=== PATIENT | female | born 1960 | race Caucasian/White ===

== ENCOUNTER 2016-11-19 18:59 | Inpatient (IN) | payer BC, OTHER ==
[~2016-11-19] VITALS: Ht 165.1 cm; Wt 56.2 kg
[2016-11-19 19:05] VITALS: BP_SYST 115
[2016-11-19] MEDS ORDERED: NACL 0.9% 1,000 ML IV ONE ×2 (19:30→20:45)
[2016-11-19] MEDS ORDERED: NALOXONE HCL 2 MG/2 ML SYR IVP ONE (19:30)
[2016-11-19 19:47] LABS: MEAN CORPUSCULAR HEMOGLOBIN 27 pg (27-31); MEAN CORPUSCULAR HGB CONC 32 % (32-36); MEAN CORPUSCULAR VOLUME 85 fL (79.0-98.0)
[2016-11-19 20:12] LABS: BASOPHILS # (AUTO) 0.1 K/uL (0.0-0.2); BASOPHILS % (AUTO) 0.6 % (0.0-2.0); LYMPHOCYTES # (AUTO) 0.4 K/uL (1.0-5.5); LYMPHOCYTES % (AUTO) 2.6 % (20.5-51.5); MONOCYTES # (AUTO) 0.1 K/uL (0.0-1.0); NEUTROPHILS # (AUTO) 13.7 K/uL (1.8-7.7); NEUTROPHILS % (AUTO) 95.8 % (40.0-70.0); PLATELET COUNT (AUTO) 581 K/uL (130-430); RED BLOOD CELL COUNT(AUTO) 3.66 MIL/uL (4.2-6.2); RED CELL DISTRIBUTION WIDTH 14.9 % (9.0-15.0); WHITE BLOOD COUNT (AUTO) 14.3 K/uL (4.8-10.8)
[2016-11-19 20:35] LABS: CALCIUM 9.1 mg/dL (8.4-11.0); CREATININE 0.67 mg/dL (0.55-1.30); GLUCOSE 134 mg/dL (70-99); SODIUM SERUM 124 mmol/L (136-145); UREA NITROGEN, BLOOD 21 mg/dL (8-21)
[2016-11-19 20:36] LABS: CHLORIDE 84 mmol/L (98-107); GFR AFRICAN AMERICAN 117 mL/min (>90)
[2016-11-19 20:39] LABS: ANION GAP < 3 (5-15)
[2016-11-19 20:44] LABS: ALANINE AMINOTRANSFERASE 13 U/L (12-78); ALBUMIN 2.4 g/dL (3.4-4.8); ALCOHOL, BLOOD < 3 mg/dL (<10); ASPARTATE AMINOTRANSFERASE 23 U/L (10-37); LIPASE 72 U/L (73-393); SALICYLATE 2 mg/dL (3-30); TOTAL BILIRUBIN 0.2 mg/dL (0.0-1.0); TOTAL PROTEIN, SERUM 6.7 g/dL (6.4-8.3)
[2016-11-19] MEDS ORDERED: DEXTROSE 50% JECT 50 ML DISP.SYRIN IVP ONE (20:45)
[2016-11-19] MEDS ORDERED: INSULIN REGULAR, HUMAN 10 UNITS/0.1 ML INJ IVP ONE (20:45)
[2016-11-19] MEDS ORDERED: SODIUM POLYSTYRENE SULFONATE 15 GM/60 ML UDBTL PO ONE ×2 (20:45→22:15)
[2016-11-19 21:21] LABS: ACETAMINOPHEN 2 ug/mL (1-30)
[2016-11-19 22:03] LABS: BILIRUBIN,URINE NEGATIVE (NEGATIVE); BLOOD, URINE NEGATIVE (NEGATIVE); CLARITY/URINE HAZY (CLEAR); COLOR,URINE YELLOW (YELLOW); GLUCOSE,URINE 1+ (NEGATIVE); KETONES,URINE NEGATIVE (NEGATIVE); LEUKOCYTE ESTERASE ,URINE NEGATIVE (NEGATIVE); NITRITE, URINE NEGATIVE (NEGATIVE); PROTEIN URINE TRACE (NEGATIVE); UROBILINOGEN,URINE 0.2 (0.2-1.0)
[2016-11-19 22:21] LABS: BACTERIA,URINE FEW /HPF (None Seen); HYALINE CASTS, URINE 0-10 /LPF (None Seen); MUCUS,URINE 2+ /LPF (None Seen); RBC,URINE 0-3 /HPF (0-3)
[2016-11-19 22:36] VITALS: BP_SYST 108
[2016-11-19 22:37] LABS: BARBITURATE, URINE NEGATIVE (NEG <=200)
[2016-11-19 22:38] LABS: BENZODIAZEPINE, URINE POSITIVE (NEG <=150); CANNABINOID, URINE NEGATIVE (NEG <=50); COCAINE, URINE NEGATIVE (NEG <=150); METHAMPHETAMINES SCREEN,URINE NEGATIVE (NEG <=500); OPIATE, URINE NEGATIVE (NEG <=100); PHENCYCLIDINE SCREEN,URINE NEGATIVE (NEG <=25); UR TRICYCLIC ANTIDEPRESSANTS NEGATIVE (NEG <=300); URINE AMPHETAMINE NEGATIVE (NEG <=500); URINE METHADONE NEGATIVE (NEG <=200); URINE OXYCODONE SCREEN NEGATIVE (NEG <=100); URINE PROPOXYPHENE SCREEN NEGATIVE (NEG <=300)
[2016-11-20] VITALS (23 sets, daily range): BP systolic 85–117
[2016-11-20] MEDS ORDERED: SPIRIVA INH (04:29)
[2016-11-20] MEDS ORDERED: AMLO5TAB92 PO (04:29)
[2016-11-20] MEDS: NACL 0.9% 1,000 ML IV SCH (07:01)
[2016-11-20 07:14] LABS: BASOPHILS # (AUTO) 0.1 K/uL (0.0-0.2); BASOPHILS % (AUTO) 0.6 % (0.0-2.0); HEMATOCRIT 29.8 % (36-48); HEMOGLOBIN 9.3 g/dL (12.0-16.0); LYMPHOCYTES # (AUTO) 0.6 K/uL (1.0-5.5); LYMPHOCYTES % (AUTO) 3.7 % (20.5-51.5); MEAN CORPUSCULAR HEMOGLOBIN 27 pg (27-31); MEAN CORPUSCULAR HGB CONC 31 % (32-36); MEAN CORPUSCULAR VOLUME 86 fL (79.0-98.0); MONOCYTES # (AUTO) 1.2 K/uL (0.0-1.0); MONOCYTES % (AUTO) 7.6 % (1.7-9.3); NEUTROPHILS # (AUTO) 14.3 K/uL (1.8-7.7); NEUTROPHILS % (AUTO) 88.1 % (40.0-70.0); PLATELET COUNT (AUTO) 553 K/uL (130-430); RED BLOOD CELL COUNT(AUTO) 3.47 MIL/uL (4.2-6.2); RED CELL DISTRIBUTION WIDTH 14.6 % (9.0-15.0); WHITE BLOOD COUNT (AUTO) 16.2 K/uL (4.8-10.8)
[2016-11-20 07:20] LABS: ALANINE AMINOTRANSFERASE 11 U/L (12-78); ASPARTATE AMINOTRANSFERASE 20 U/L (10-37); CALCIUM 8.4 mg/dL (8.4-11.0); TOTAL BILIRUBIN 0.1 mg/dL (0.0-1.0); TOTAL PROTEIN, SERUM 5.7 g/dL (6.4-8.3); UREA NITROGEN, BLOOD 17 mg/dL (8-21)
[2016-11-20 07:39] LABS: POTASSIUM 4.7 mmol/L (3.5-5.1); SODIUM SERUM 136 mmol/L (136-145)
[2016-11-20 07:40] LABS: CHLORIDE 93 mmol/L (98-107)
[2016-11-20 07:41] LABS: CREATININE 0.54 mg/dL (0.55-1.30); GFR AFRICAN AMERICAN 150 mL/min (>90); GLUCOSE 106 mg/dL (70-99)
[2016-11-20 07:42] LABS: ANION GAP < 3 (5-15)
[2016-11-20 08:19] LABS: BLOOD GAS PH 7.261 (7.350-7.450)
[2016-11-20 08:20] LABS: BLOOD GAS BASE EXCESS 8.7 mmol/L (-3.0-3.0)
[2016-11-20] MEDS ORDERED: ALBUTEROL SULFATE 0.083% 2.5 MG/3 ML VIAL.NEB INH PRN (09:30)
[2016-11-20] MEDS ORDERED: IPRATROPIUM BROM 0.5 MG/2.5 ML VIAL.NEB (ATROVENT) INH PRN (09:30)
[2016-11-20] MEDS: ALBUTEROL SULFATE 0.083% 2.5 MG/3 ML VIAL.NEB INH SCH ×4 (10:59→23:00)
[2016-11-20] MEDS: IPRATROPIUM BROM 0.5 MG/2.5 ML VIAL.NEB (ATROVENT) INH SCH ×4 (11:00→23:00)
[2016-11-20] MEDS: LEVOFLOXACIN 500 MG/D5W 100 ML IV SCH (11:13)
[2016-11-20 11:14] LABS: ABG TOTAL HEMOGLOBIN 10.5 G/dL (12.0-18.0); BLOOD GAS COHb% 0.2 % (0.5-1.5); BLOOD GAS HHB 25.1 % (0.0-6.0); BLOOD O2Hb% 74.6 % (94.0-97.0)
[2016-11-20] MEDS ORDERED: FLUT1DIS3 INH (11:48)
[2016-11-20] MEDS ORDERED: NS 500 ML IV ONE (14:15)
[2016-11-20] MEDS: VANCOMYCIN HCL 1 GM/NS PREMIX 250 ML IV SCH (16:41)
[2016-11-20] MEDS ORDERED: ACETAMINOPHEN 325 MG TABLET PO PRN (19:45)
[2016-11-21] VITALS (17 sets, daily range): BP systolic 96–154
[2016-11-21] MEDS: ALBUTEROL SULFATE 0.083% 2.5 MG/3 ML VIAL.NEB INH SCH ×5 (03:00→20:57)
[2016-11-21] MEDS: IPRATROPIUM BROM 0.5 MG/2.5 ML VIAL.NEB (ATROVENT) INH SCH ×4 (03:00→20:58)
[2016-11-21] MEDS: VANCOMYCIN HCL 1 GM/NS PREMIX 250 ML IV SCH ×2 (03:49→17:02)
[2016-11-21] MEDS: NACL 0.9% 1,000 ML IV SCH (03:49)
[2016-11-21 06:44] LABS: BASOPHILS # (AUTO) 0.1 K/uL (0.0-0.2); BASOPHILS % (AUTO) 0.5 % (0.0-2.0); HEMATOCRIT 27.9 % (36-48); HEMOGLOBIN 8.8 g/dL (12.0-16.0); LYMPHOCYTES # (AUTO) 0.8 K/uL (1.0-5.5); LYMPHOCYTES % (AUTO) 5.2 % (20.5-51.5); MEAN CORPUSCULAR HEMOGLOBIN 27 pg (27-31); MEAN CORPUSCULAR HGB CONC 31 % (32-36); MEAN CORPUSCULAR VOLUME 86 fL (79.0-98.0); MONOCYTES # (AUTO) 0.8 K/uL (0.0-1.0); MONOCYTES % (AUTO) 5.6 % (1.7-9.3); NEUTROPHILS # (AUTO) 12.8 K/uL (1.8-7.7); NEUTROPHILS % (AUTO) 88.7 % (40.0-70.0); PLATELET COUNT (AUTO) 493 K/uL (130-430); RED BLOOD CELL COUNT(AUTO) 3.26 MIL/uL (4.2-6.2); RED CELL DISTRIBUTION WIDTH 15.4 % (9.0-15.0); WHITE BLOOD COUNT (AUTO) 14.5 K/uL (4.8-10.8)
[2016-11-21 07:04] LABS: ALANINE AMINOTRANSFERASE 10 U/L (12-78); ALBUMIN 1.8 g/dL (3.4-4.8); ASPARTATE AMINOTRANSFERASE 24 U/L (10-37); CALCIUM 7.9 mg/dL (8.4-11.0); CHLORIDE 98 mmol/L (98-107); CREATININE 0.42 mg/dL (0.55-1.30); GLUCOSE 91 mg/dL (70-99); POTASSIUM 3.1 mmol/L (3.5-5.1); SODIUM SERUM 137 mmol/L (136-145); TOTAL BILIRUBIN 0.1 mg/dL (0.0-1.0); UREA NITROGEN, BLOOD 14 mg/dL (8-21)
[2016-11-21 07:13] LABS: GFR AFRICAN AMERICAN 201 mL/min (>90)
[2016-11-21 07:15] LABS: ANION GAP < 3 (5-15)
[2016-11-21 08:01] LABS: ABG TOTAL HEMOGLOBIN 9.9 G/dL (12.0-18.0); BLOOD GAS BASE EXCESS 7.9 mmol/L (-3.0-3.0); BLOOD GAS COHb% 0.3 % (0.5-1.5); BLOOD GAS HHB 8.6 % (0.0-6.0); BLOOD GAS PH 7.348 (7.350-7.450); BLOOD O2Hb% 90.8 % (94.0-97.0)
[2016-11-21] MEDS: LEVOFLOXACIN 500 MG/D5W 100 ML IV SCH (09:20)
[2016-11-21] MEDS ORDERED: POTASSIUM CHLORIDE 20 MEQ TAB.PRT.SR PO ONE (09:45)
[2016-11-21] MEDS ORDERED: HEPARIN SODIUM,PORCINE 5000 UNITS/ML VIAL IV ONE (19:30)
[2016-11-22 00:18] VITALS: BP_SYST 104
[2016-11-22] MEDS: VANCOMYCIN HCL 1 GM/NS PREMIX 250 ML IV SCH ×2 (03:29→16:18)
[2016-11-22 04:00] VITALS: BP_SYST 105
[2016-11-22 07:04] LABS: BASOPHILS % (AUTO) 0.1 % (0.0-2.0); HEMATOCRIT 27.2 % (36-48); HEMOGLOBIN 8.7 g/dL (12.0-16.0); LYMPHOCYTES # (AUTO) 0.8 K/uL (1.0-5.5); LYMPHOCYTES % (AUTO) 7.5 % (20.5-51.5); MEAN CORPUSCULAR HEMOGLOBIN 27 pg (27-31); MEAN CORPUSCULAR HGB CONC 32 % (32-36); MEAN CORPUSCULAR VOLUME 85 fL (79.0-98.0); MONOCYTES # (AUTO) 0.5 K/uL (0.0-1.0); MONOCYTES % (AUTO) 4.7 % (1.7-9.3); NEUTROPHILS # (AUTO) 9.8 K/uL (1.8-7.7); NEUTROPHILS % (AUTO) 87.7 % (40.0-70.0); PLATELET COUNT (AUTO) 473 K/uL (130-430); RED BLOOD CELL COUNT(AUTO) 3.21 MIL/uL (4.2-6.2); RED CELL DISTRIBUTION WIDTH 15.5 % (9.0-15.0); WHITE BLOOD COUNT (AUTO) 11.1 K/uL (4.8-10.8)
[2016-11-22 07:24] LABS: ALANINE AMINOTRANSFERASE 10 U/L (12-78); ALBUMIN 1.6 g/dL (3.4-4.8); ASPARTATE AMINOTRANSFERASE 27 U/L (10-37); CHLORIDE 100 mmol/L (98-107); CREATININE 0.41 mg/dL (0.55-1.30); GLUCOSE 87 mg/dL (70-99); POTASSIUM 3.5 mmol/L (3.5-5.1); SODIUM SERUM 140 mmol/L (136-145); TOTAL BILIRUBIN 0.2 mg/dL (0.0-1.0); TOTAL PROTEIN, SERUM 4.9 g/dL (6.4-8.3); UREA NITROGEN, BLOOD 10 mg/dL (8-21)
[2016-11-22 07:30] LABS: GFR AFRICAN AMERICAN 206 mL/min (>90)
[2016-11-22 07:34] LABS: ANION GAP < 3 (5-15)
[2016-11-22 07:58] VITALS: BP_SYST 104
[2016-11-22] MEDS: LEVOFLOXACIN 500 MG/D5W 100 ML IV SCH (09:30)
[2016-11-22] MEDS: IPRATROPIUM BROM 0.5 MG/2.5 ML VIAL.NEB (ATROVENT) INH SCH ×4 (10:04→20:35)
[2016-11-22] MEDS: ALBUTEROL SULFATE 0.083% 2.5 MG/3 ML VIAL.NEB INH SCH ×4 (10:04→20:35)
[2016-11-22 10:14] LABS: ABG TOTAL HEMOGLOBIN 9.7 G/dL (12.0-18.0); BLOOD GAS BASE EXCESS 12.4 mmol/L (-3.0-3.0); BLOOD GAS COHb% 0.5 % (0.5-1.5); BLOOD GAS HHB 14.1 % (0.0-6.0); BLOOD O2Hb% 85.2 % (94.0-97.0)
[2016-11-22 12:15] VITALS: BP_SYST 97
[2016-11-22] MEDS ORDERED: MILK OF MAGNESIA 30 ML UDC PO ONE (12:15)
[2016-11-22 16:25] VITALS: BP_SYST 105
[2016-11-22] MEDS ORDERED: NA PHOS,M-B/NA PHOS,DI-BA 118 ML (FLEET ENEMA) RC PRN (17:15)
[2016-11-22 20:00] VITALS: BP_SYST 104
[2016-11-23] VITALS (7 sets, daily range): BP systolic 94–110
[2016-11-23] MEDS: VANCOMYCIN HCL 1 GM/NS PREMIX 250 ML IV SCH ×2 (05:09→15:20)
[2016-11-23] MEDS: IPRATROPIUM BROM 0.5 MG/2.5 ML VIAL.NEB (ATROVENT) INH SCH ×3 (07:00→15:00)
[2016-11-23] MEDS: ALBUTEROL SULFATE 0.083% 2.5 MG/3 ML VIAL.NEB INH SCH ×3 (07:00→15:00)
[2016-11-23] MEDS: LEVOFLOXACIN 500 MG/D5W 100 ML IV SCH (09:03)
== END 2016-11-23 18:05 | DRG 189 ==
LOC: SED 18:59 → EDBD 18:59 → STU 21:55 → SIC 11-20 10:06 → STU 11-21 17:11
PROVIDERS: ADMIT Internal Medicine Hospice and Palliative Medicine; ATTEND Internal Medicine Hospice and Palliative Medicine
PROC: 5A09357 Assistance with Respiratory Ventilation, Less than 24 Consecutive Hours, Continuous Positive Airway Pressure (ICD-10-PCS; principal; 2016-11-20)
DX: J96.21 Acute and chronic respiratory failure with hypoxia (principal); G93.40 Encephalopathy, unspecified; E43 Unspecified severe protein-calorie malnutrition; R18.8 Other ascites; C18.9 Malignant neoplasm of colon, unspecified; J44.9 Chronic obstructive pulmonary disease, unspecified; J96.22 Acute and chronic respiratory failure with hypercapnia; E87.5 Hyperkalemia; N19 Unspecified kidney failure; I10 Essential (primary) hypertension; D64.9 Anemia, unspecified; Z88.0 Allergy status to penicillin; Z99.81 Dependence on supplemental oxygen; Z87.891 Personal history of nicotine dependence; Z68.20 Body mass index [BMI] 20.0-20.9, adult
CPT/HCPCS: 36415; 36600; 70450-TC; 71010; 72125-TC; 76705; 80053; 80202-TC; 80307; 81000-TC; 82140-TC; 82803-TC; 83605; 83690-TC; 84484; 85025; 87040-TC; 87081; 93005; 94640; 94660; 94760; 96361; 96374; 96375; 99285; A6209; G0480; G0481; G0482; J1120; J1815; J1956; J2310; J3370; J7030; J7040; J7050